=== PATIENT | female | born 1955 | race Caucasian/White ===

== ENCOUNTER → 2019-09-26 15:51 | Outpatient (CLI) | payer OTHER, SELFPAY ==
--- NOTE | ~2019-09-26 | XR_ITS ---
XR toe 1st LT min 2V DATE: 09/26/2019 16:32 INDICATION: Recurring wound at the distal first toe for 4 months TECHNIQUE: 3 views COMPARISON: None FINDINGS: No fracture or dislocation, periosteal reaction or bone destruction, radiopaque soft tissue foreign body or subcutaneous emphysema is evident. Joint spaces are preserved. IMPRESSION: No significant abnormality Reviewed, dictated and finalized at location B. IMPRESSION: No significant abnormality
== END ==
PROVIDERS: PCP Podiatrist Foot & Ankle Surgery; Visit Provider Podiatrist Foot & Ankle Surgery
DX: M19.072 Primary osteoarthritis, left ankle and foot (principal)
CPT/HCPCS: 73660

== ENCOUNTER 2020-10-25 09:24 | Emergency (ER) | payer OTHER, SELFPAY ==
--- NOTE | ~2020-10-25 | XR_ITS ---
EXAMINATION: XR forearm LT 2V DATE: 10/25/2020 09:53 INDICATION: Left forearm pain. TECHNIQUE: 2 views of left forearm were obtained. COMPARISON: None. FINDINGS: Bone alignment is normal. No fracture. Joint spaces are well maintained. There is no elbow joint effusion. IMPRESSION: 1. Normal left forearm. Reviewed, dictated and finalized at location B. IMPRESSION: 1. Normal left forearm.
[2020-10-25 09:33] VITALS: BP 167/86; PULSE 77; RESP 16; TEMP 36.1; O2SAT 99
--- NOTE | 2020-10-25 10:14 | ED.GENADULT ---
HPI - General Adult General Chief complaint: Extremity Injury, Lower Stated complaint: left arm pain Source: patient Mode of arrival: ambulatory Limitations: no limitations History of Present Illness HPI narrative: Patient is a 65-year-old female presents to the [facility] via POV for evaluation of left forearm that has been present for approximately 2 weeks. She reports ibuprofen and Luis Antonio wrap improves pain. Pain worsens with lifting. She reports her pain is intermittent and sore nature. Of note, patient reports she frequently lifts her 100 pound disabled daughter and believes this may be the cause of her symptoms prompting today's visit. Related Data Home Medications Medication Instructions Recorded Confirmed doxycycline hyclate 50 mg PO DAILY 10/25/20 10/25/20 Allergies Allergy/AdvReac Type Severity Reaction Status Date / Time No Known Allergies Allergy Unknown Unknown Verified 10/18/18 19:55 Review of Systems Review of Systems: Denies fever, chills, sweats, change in appetite, poor p.o. intake, malaise, skin color changes, rash, warmth, swelling, numbness, tingling, loss of sensation, deformity, decreased range of motion, weakness, difficulty with ambulation/coordination, nausea, vomiting, lymphadenopathy, shortness of breath, chest pain, heart palpitations, and heart murmur. [facility] Past Medical History Medical History (Updated 10/25/20 @ 10:28 by SOLEDAD Sanchez, ) Rosacea Social History Social History Gender identity (if verbalized by the patient): Female Comments I have reviewed and agree with the patient's past medical, surgical, social, and family hx as documented by the RN. There is no relevant family history pertinent to the presenting complaint. Exam Narrative: GENERAL: Well-appearing, well-nourished, and in no acute distress. HEAD: Normocephalic, atraumatic. NECK: Supple. No Lymphadenopathy or nuchal rigidity appreciated. CHEST: Bilateral lung ring are clear to auscultation. No respiratory distress. No evidence of cough or pleuritic cp upon examination. HEART: Regular rate and rhythm. No murmur, gallop, or rub heard. EXTREMITIES: Mild pain elicited to distal end of medial aspect of left forearm. No evidence of injury, decreased ROM, swelling, cyanosis, hematoma, laceration, abrasion, deformity, rash, or puncture. No evidence of pain with active/passive ROM. No evidence of dislocation, ligament laxity, effusion, or pain at rest. Pulses palpable at 2+, strength 5/5, and cap refill < 3 seconds in affected extremity. DTRs normal. Gait normal. SKIN: Warm, dry, no rash. NEURO: No focal deficits. Alert and oriented x3. SPECIAL OBSERVATIONS: Smiling. Laughing. Course Vital Signs Vital signs: Vital Signs Temperature 97.0 F L 10/25/20 09:33 Pulse Rate 77 10/25/20 09:33 Respiratory Rate 16 10/25/20 09:33 Blood Pressure 167/86 H 10/25/20 09:33 Pulse Oximetry 99 10/25/20 09:33 Temperature 97.0 F L 10/25/20 09:33 Pulse Rate 77 10/25/20 09:33 Respiratory Rate 16 10/25/20 09:33 Blood Pressure 167/86 H 10/25/20 09:33 Pulse Oximetry 99 10/25/20 09:33 Medical Decision Making Differential Diagnosis Differential Diagnosis: Sprain, strain, cellulitis, open fracture, closed fracture, gout Medical Records Medical records reviewed: Yes I reviewed the external patient's medical records. Vital Signs Vital Signs: Vital Signs Temperature 97.0 F L 10/25/20 09:33 Pulse Rate 77 10/25/20 09:33 Respiratory Rate 16 10/25/20 09:33 Blood Pressure 167/86 H 10/25/20 09:33 Pulse Oximetry 99 10/25/20 09:33 Temperature 97.0 F L 10/25/20 09:33 Pulse Rate 77 10/25/20 09:33 Respiratory Rate 16 10/25/20 09:33 Blood Pressure 167/86 H 10/25/20 09:33 Pulse Oximetry 99 10/25/20 09:33 Due to an elevated blood pressure, I had a detailed discussion with the patient and/or guardian regarding th
== END 2020-10-25 10:32 | disposition home or self-care (01) ==
PROVIDERS: Emergency Provider Nurse Practitioner Family; PCP Family Medicine
DX: M65.232 Calcific tendinitis, left forearm (principal)
CPT/HCPCS: 73090; 99213; G0463

== ENCOUNTER 2022-05-21 09:14 | Emergency (ER) | payer OTHER, SELFPAY ==
[2022-05-21 09:23] VITALS: BP 148/81; PULSE 84; RESP 16; TEMP 37; O2SAT 99
--- NOTE | 2022-05-21 09:23 | ED.SKABFB ---
HPI - Skin/Abscess/Foreign Bdy General Chief complaint: Skin/Abscess/Foreign Body Stated complaint: Rash On Body Time Seen by Provider: 05/21/22 09:20 Source: patient Mode of arrival: ambulatory Limitations: no limitations History of Present Illness HPI narrative: Eliane is a 67-year-old female patient presenting to the clinic today with complaints of a rash in the flexor surfaces of her bilateral elbows, behind her knees, and under her breast. Rash is red and itchy. She has had this rash for 3 weeks now. Related Data Allergies Allergy/AdvReac Type Severity Reaction Status Date / Time No Known Allergies Allergy Unknown Unknown Verified 05/21/22 09:23 Review of Systems Review of Systems: Pertinent positives per HPI. Patient denies any fever, chills, headache, visual changes, dizziness, cough, runny nose, sore throat, shortness of breath, chest pain, palpitations, nausea, vomiting, diarrhea, constipation, abdominal pain, or any urinary issues. [facility] Past Medical History Medical History (Updated 05/21/22 @ 09:31 by Yvon Ramon, DISPENSARY ATTENDANT) Rosacea Social History Social History Gender identity (if verbalized by the patient): Female Comments At the time of my signature, I reviewed and agree with the nursing past medical, surgical, social, and family history. There is no relevant family history pertinent to the patient complaint. Exam Narrative: General: Well-developed, well nourished, in no apparent distress Head: Normocephalic, atraumatic. Cardio: Regular rate and rhythm, s1 and s2 normal, no murmur appreciated. Resp: Clear to auscultation bilaterally, no rhonchi, rales, wheezing or rubs. Integumentary: [place], warm, and dry, intact without lesion, red, inflamed, itchy, dermatological rash under her breasts, behind knees, and in the flexor surfaces of the elbows. No discharge noted. Course Course Emergency Course: Portions of this record may have been created with voice recognition software. Level of Care: Express Care Visit Vital Signs Vital signs: Vital Signs Temperature 37.0 C 05/21/22 09:23 Pulse Rate 84 05/21/22 09:23 Respiratory Rate 16 05/21/22 09:23 Blood Pressure 148/81 H 05/21/22 09:23 Pulse Oximetry 99 05/21/22 09:23 Oxygen Delivery Room Air 05/21/22 09:23 Temperature 37.0 C 05/21/22 09:24 Pulse Rate 84 05/21/22 09:24 Respiratory Rate 16 05/21/22 09:24 Blood Pressure 148/81 H 05/21/22 09:24 Pulse Oximetry 99 05/21/22 09:24 Oxygen Delivery Room Air 05/21/22 09:24 Vital signs reviewed MDM - Skin/Abscess/Foreign Bdy MDM Narrative Medical decision making narrative: At the time of visit patient is resting comfortably on the exam table. I suspect patient has flexor dermatitis but cannot rule out yeast infection under her breast. Will send in prescription for triamcinolone/nystatin cream to apply twice daily times 14 days. Supportive measures were discussed with the patient she voiced understanding of discharge instructions and agrees to the treatment plan. Differential Diagnosis Differential diagnosis: Likely abscess of skin or subcutaneous tissue, cellulitis and contact dermatitis Discharge Plan Discharge Clinical Impression: Dermatitis Patient Disposition: Home, Self-Care Condition: Stable Instructions: Antibiotic Form, Dermatitis (ED) Additional Instructions: Keep areas clean and dry Apply cream twice daily times 14 days Avoid scratching May take Benadryl 25-50 mg every 6 hours as needed for itching Avoid hot showers Follow-up with your PCP in 1 week if symptoms persist or sooner if they worsen Prescriptions: New nystatin-triamcinolone 100,000-0.1 unit/gram-% ointment 1 applic topical BID 14 Days Qty: 60 0RF Follow-up/Referrals: Zeb,Stephanie Vaughan MD [Primary Care Provider] - Time of Disposition: 09:32 Quality [facility] Nursing Documentatio
[2022-05-21 09:24] VITALS: BP 148/81; PULSE 84; RESP 16; TEMP 37; O2SAT 99
== END 2022-05-21 09:39 | disposition home or self-care (01) ==
PROVIDERS: Emergency Provider Nurse Practitioner Family; PCP Family Medicine
DX: L30.9 Dermatitis, unspecified (principal)
CPT/HCPCS: 99213; G0463

== ENCOUNTER 2022-08-26 00:57 | Day surgery (SDC) | payer OTHER, SELFPAY ==
[2022-08-15 13:47] VITALS: BMI 20.9
[2022-08-26 09:11] VITALS: BP 138/84; PULSE 95; RESP 20; TEMP 36; O2SAT 100; BMI 20.7
[2022-08-26] MEDS: LACTATED RINGERS 1,000 ML 150 ML IV CONT (09:22)
--- NOTE | 2022-08-26 09:32 | PM.HPGS ---
History of Present Illness History of Present Illness Consent: Risks, benefits, and alternatives have been discussed and questions answered. Patient agrees to proceed with procedure. Chief complaint: history of colon polyps Narrative: Eliane Kidd is a 67 year old female Presents for screening colonoscopy. Patient's current weight appetite and bowel movements are normal. She denies abdominal pain. Patient has had no bleeding. Patient has had prior colon polyps. Most recently 5 years ago. Family history is significant her mother had colon polyps. Patient's grandfather had colon cancer. Review of Systems Review of Systems: Review of systems noncontributory. [facility] Past Medical History Medical History (Updated 08/26/22 @ 09:33 by Wicho Lopez MD) Rosacea Social History Social History (Reviewed 10/25/20 @ 10:16 by Nilsa Roberson, [facility], ) Living arrangements: with family Gender identity (if verbalized by the patient): Female Meds Home Medications and Allergies Home Medications Medication Instructions Recorded Confirmed Type nystatin-triamcinolone 100,000 1 applic topical BID 14 days #60 05/21/22 08/26/22 Rx unit/gram-0.1 % topical ointment grams Allergies Allergy/AdvReac Type Severity Reaction Status Date / Time No Known Allergies Allergy Unknown Unknown Verified 08/26/22 09:10 Vital Signs Vital Signs - 24 hr 08/26/22 09:11 Temperature 96.8 F L Pulse Rate 95 Respiratory Rate 20 Blood Pressure 138/84 Pulse Oximetry 100 Oxygen Delivery Room Air Exam Narrative: Physical exam reveals patient to be alert. Vital signs stable. HEENT exam is unremarkable. Patient is anicteric. Lungs are clear to auscultation and percussion. Heart is without murmur or extra sounds. Abdomen bowel sounds are present soft nontender with no hepatosplenomegaly. Digital external rectal exam is normal. Assessment and Plan Assessment and plan (1) History of colon polyps: Code(s): Z86.010 - Personal history of colonic polyps Status: Acute Assessment and Plan: Patient has a prior history of colon polyps as well as a family history of colon polyps in her mother and colon cancer in her grandfather. Plan for surveillance colonoscopy now and consider this at 5 year intervals in the future.
--- NOTE | 2022-08-26 10:02 | WPDANESEPPF ---
Anes - Initial Pre Proc Eval Procedure: Operation Date: 08/26/22 10:30 Proposed Procedures p Screening Colonoscopy - Wicho Lopez MD Date/Time: 08/26/22 10:02 Surgeon: Wicho Lopez MD Pre Op Diagnosis: history of colon polyps Patient Data Age: 67 Gender: F Height: 1.65 m Weight: 56.5 kg Last Vital Signs Temp 96.8 F L 08/26/22 09:11 Pulse 95 08/26/22 09:11 Resp 20 08/26/22 09:11 BP 138/84 08/26/22 09:11 Pulse Ox 100 08/26/22 09:11 O2 Del Method Room Air 08/26/22 09:11 Allergies Allergy/AdvReac Type Severity Reaction Status Date / Time No Known Allergies Allergy Unknown Unknown Verified 08/26/22 09:10 Home Medications Medication Instructions Recorded Confirmed Type nystatin-triamcinolone 100,000 1 applic topical BID 14 days #60 05/21/22 08/26/22 Rx unit/gram-0.1 % topical ointment grams Patient hx anesthesia problems: none Family hx anesthesia problems: none Results Review: All pre-operative results and documents have been reviewed as part of the pre-operative evaluation. [facility] Past Medical History Medical History (Updated 08/26/22 @ 09:33 by Wicho Lopez MD) Rosacea Social History Social History Living arrangements: with family Gender identity (if verbalized by the patient): Female Anes - Eval Final PreProcedure Day of Procedure 08/26/22 10:02 Patient weight: normal Heart: regular rate and rhythm Lungs: clear to auscultation Airway: Mallampati scale class II Neurological: alert and oriented Last oral intake: >/= 8 hours ASA classification: II Emergent: no Anesthetic plan: proceed Anesthesia type and monitoring: general GIVS and standard monitoring Results Review: All pre-operative results and documents have been reviewed as part of the pre-operative evaluation. Informed Consent: The patient's anesthetic plan and its attendant risks and benefits were discussed with the patient/family/POA. Questions were solicited and answers provided to the satisfaction of the patient/family/POA.
[2022-08-26] MEDS: SIMETHICONE ORAL SUSPENSION 20 MG/0.3 ML 30 ML BOTTLE 0.6 ML IRRIGATION (10:12)
[2022-08-26 10:18] VITALS: BP 122/75; PULSE 93; RESP 24; O2SAT 99
[2022-08-26 10:28] VITALS: BP 107/69; PULSE 93; RESP 26; O2SAT 99
[2022-08-26 10:38] VITALS: BP 137/76; PULSE 82; RESP 26; O2SAT 99
== END 2022-08-26 10:54 | disposition home or self-care (01) ==
PROVIDERS: PCP Family Medicine; Visit Provider Internal Medicine Gastroenterology
PROC: 0DJD8ZZ Inspection of Lower Intestinal Tract, Via Natural or Artificial Opening Endoscopic (ICD-10-PCS; CPT 45378; principal; 2022-08-26 10:30)
DX: Z12.11 Encounter for screening for malignant neoplasm of colon (principal); K64.8 Other hemorrhoids; Z86.010 Personal history of colon polyps; Z83.71 Family history of colonic polyps; L71.9 Rosacea, unspecified
CPT/HCPCS: 45378; J2704; J7120

== ENCOUNTER 2024-02-16 09:26 | Outpatient (CLI) | payer OTHER, SELFPAY ==
--- NOTE | ~2024-02-16 | XR_ITS ---
EXAMINATION: XR chest 2V 02/16/2024 09:39 INDICATION: Cough PROCEDURE: 2 view chest COMPARISON: No prior studies for comparison. FINDINGS: The lungs are clear. The cardiomediastinal silhouette is within normal limits. There are no pleural effusions. There is no pneumothorax suspected. There is apical pleural thickening/scarri ng. Calcified granuloma left upper thorax. IMPRESSION: 1: NO ACUTE CARDIOPULMONARY DISEASE. Reviewed, dictated and finalized at location B. F ORTHOPTIST
== END 2024-02-16 09:27 | disposition home or self-care (01) ==
PROVIDERS: PCP Nurse Practitioner Family; Visit Provider Nurse Practitioner Family
DX: R05.9 Cough, unspecified (principal)
CPT/HCPCS: 71046